=== PATIENT | female | born 1975 | race Caucasian/White ===

== ENCOUNTER → 2016-03-11 | Outpatient (CLI) | payer OTHER ==
[~2016-03-11] MED LIST: AMITRIPTYLINE H50 M1 PO; ATARAX 25MG25 MG/TAB PO; CIPRO 500MG TA500 MG PO; DIFLUCAN 100MG100 MG PO; FLEXERIL 1010 MG/TAB PO; FORTAMET1000 MG PO; GLUCOPHAGE; GLUCOPHAGE500 MG/TAB PO; LAMICTAL; LAMICTAL 100MG100 MG PO; LEXAPRO 10MG10 MG PO; LEXAPRO20 MG PO; LISINOPRIL10 MG PO; LISINOPRIL5 MG PO; LORTAB 2.5/5001 TAB PO; LORTAB 5/500 501 TAB PO; LORTAB 7.5/5001 TAB PO; MACROBID 1100 MG/CAP PO; MOBIC15 MG PO; NORCO 325 MG-51 TAB PO; NORVASC 5MG5 MG/TAB PO; ORPHENADRINE C100 MG PO; PERCOCET 325 MG1 TA2 PO; PREDNISONE20 MG PO; PRINIVIL20 MG PO; PROMETHAZINE V473 M2 PO; PROVENTIL0.09 MG/A1 IH; PYRIDIUM200 M1 PO; ULTRAM 50MG TAB50 MG PO; ZITHROMAX 250M250 MG PO; ZITHROMAX500 MG PO; ZOFRAN 4MG T4 MG/TAB PO; b/p med
== END ==
LOC: COL.RAD 12:14
DX: J45.998 Other asthma (principal); R05 Cough

== ENCOUNTER 2016-07-07 17:56 | Emergency (ER) | payer SELFPAY ==
[2008-06-05 02:09] VITALS: BP 124/78
[~2016-07-07] VITALS: Ht 177.8 cm; Wt 154.5 kg
[~2016-07-07 17:56] MED LIST changes: -FLEXERIL 1010 MG/TAB PO
[2016-07-07 17:58] VITALS: TEMP 97.2
[2016-07-07] MEDS ORDERED: NORCO 325 MG-51 TAB PO (21:15)
[2016-07-07] MEDS ORDERED: DIFLUCAN 100MG100 MG PO (21:15)
[2016-07-07] MEDS ORDERED: FLEXERIL 1010 MG/TAB PO (21:15)
[2016-07-07] MEDS ORDERED: PREDNISONE20 MG PO (21:15)
[2016-07-07 21:33] VITALS: BP 116/61; PULSE 87
== END 2016-07-07 21:33 | disposition home or self-care (01) ==
LOC: COL.ER 17:56
DX: G89.29 Other chronic pain (principal); M54.5 Low back pain; F31.9 Bipolar disorder, unspecified; J44.9 Chronic obstructive pulmonary disease, unspecified; E11.9 Type 2 diabetes mellitus without complications; I10 Essential (primary) hypertension; F17.210 Nicotine dependence, cigarettes, uncomplicated; Z87.891 Personal history of nicotine dependence; Z98.890 Other specified postprocedural states; Z98.51 Tubal ligation status
CPT/HCPCS: J1170; J1885; J3360; J7512

== ENCOUNTER → 2017-07-06 | Outpatient (CLI) | payer SELFPAY ==
[~2017-07-06] MED LIST changes: +FLEXERIL 1010 MG/TAB PO
== END ==
LOC: COL.RAD 09:11
DX: M17.0 Bilateral primary osteoarthritis of knee (principal)

== ENCOUNTER → 2017-10-28 | Outpatient (CLI) | payer SELFPAY ==
[~2017-10-28] MED LIST changes: +ASPIRIN 81M81 MG/TA2 PO; +BUSPAR DIVIDOSE15 MG PO; +NEURONTIN300 MG/CAP PO
== END ==
LOC: COL.RAD 11:38
DX: N20.0 Calculus of kidney (principal)

== ENCOUNTER 2019-01-22 18:02 | Emergency (ER) | payer BC ==
[~2019-01-22] VITALS: Ht 177.8 cm; Wt 154.5 kg
[~2019-01-22 18:02] MED LIST changes: +PRILOSEC10 MG
[2019-01-22 18:11] VITALS: BP 141/76; TEMP 97.7
[2019-01-22 20:21] LABS: COLLECTION METHOD CLEAN CATCH
[2019-01-22 20:31] LABS: MUCOUS Present /lpf; PH 5 (5-8); SQUAMOUS EPITHELIAL 0-2 /hpf; URINE APPEARANCE Hazy; URINE BACTERIA Rare /hpf; URINE BILIRUBIN Negative (NEGATIVE); URINE BLOOD Negative (NEGATIVE); URINE COLOR Yellow; URINE GLUCOSE Negative (NEGATIVE); URINE KETONE Trace (NEGATIVE); URINE LEUKOCYTE ESTERASE Negative (NEGATIVE); URINE NITRATE Negative (NEGATIVE); URINE PROTEIN(semi-quant) Negative (NEGATIVE); URINE RBC 0-2 /hpf
[2019-01-22] MEDS ORDERED: PERCOCET 325 MG1 TA2 PO (20:42)
[2019-01-22 21:52] VITALS: PULSE 81
== END 2019-01-22 21:52 | disposition home or self-care (01) ==
LOC: COL.ER 18:02
PROVIDERS: Physician Assistant
DX: M54.5 Low back pain (principal); Z98.890 Other specified postprocedural states; Z79.82 Long term (current) use of aspirin; Z79.84 Long term (current) use of oral hypoglycemic drugs; X50.0XXA Overexertion from strenuous movement or load, initial encounter
CPT/HCPCS: J2270; J2360

== ENCOUNTER 2019-08-22 19:35 | Inpatient (IN) | payer BC ==
[2019-08-22] VITALS (19 sets, daily range): BP systolic 136; BP diastolic 85; PULSE 83; TEMP 97.6; O2SAT 95–98
[~2019-08-22] VITALS: Ht 175.3 cm; Wt 158.3 kg
[~2019-08-22 19:35] MED LIST changes: +PRAVACHOL 40MG40 MG PO; -PRILOSEC10 MG; +PRILOSEC10 MG PO
[2019-08-22 20:16] LABS: BASO % 0.3 % (0.0-2.0); EOS # 0.3 (0.0-0.7); EOS % 2.7 % (0-4.0); GRAN # 5.9 (1.4-6.5); GRAN % 61.8 % (42.2-75.2); HEMATOCRIT 39.8 % (37.0-47.0); LYMPH # 2.6 (1.2-3.4); MEAN CELL VOLUME 86 fl (80.0-100.0); MEAN CORPUSCULAR HEMOGLOBIN 28 pg (27.0-31.0); MEAN CORPUSCULAR HGB CONC 33 g/dl (33.0-37.0); MEAN PLATELET VOLUME 10.8 fl (7.4-10.4); MONO # 0.8 (0.1-0.6); MONO % 7.8 % (1.7-9.3); PLATELET COUNT 220 K/mm3 (130-400); RED BLOOD COUNT 4.63 M/mm3 (4.10-5.30); REDCELL DISTRIBUTION WIDTH-CV 13.1 % (11.5-14.5)
[2019-08-22 20:36] LABS: PROTHROMBIN TIME 10.6 SECONDS (9.7-12.8)
[2019-08-22 20:39] LABS: PARTIAL THROMBOPLASTIN TIME 26.7 SECONDS (26.0-37.0)
[2019-08-22 20:56] LABS: ALANINE AMINOTRANSFERASE 15 U/L (4-34); ALBUMIN 4.1 gm/dL (3.5-5.0); ALKALINE PHOSPHATASE 78 U/L (50-136); ANION GAP 10 mmol/L (7-16); AST,SGOT 19 U/L (15-37); BILIRUBIN,TOTAL 0.4 mg/dL (0.0-1.0); BLOOD UREA NITROGEN 14 mg/dL (7-17); CALCIUM 9.4 mg/dL (8.4-10.2); CARBON DIOXIDE 25 mmol/L (22-30); CHLORIDE 103 mmol/L (98-107); CREATININE, serum 0.59 (0.52-1.25); GLUCOSE 143 mg/dL (74-106); POTASSIUM 3.7 mmol/L (3.4-5.0); SODIUM 138 mmol/L (137-145); TOTAL PROTEIN 7.4 gm/dL (6.4-8.2)
[2019-08-22 21:10] LABS: TROPONIN-I < 0.012 ng/mL (0.000-0.035)
--- NOTE | 2019-08-22 23:00 | NUR ---
REPORT RECEIVED FROM CURTIS HALLMAN.
--- NOTE | 2019-08-22 23:10 | NUR ---
RECEIVED PT FROM ED WITH NITROGLYCERINE INFUSING AT 5 MCG/MIN OR 1.5 ML/HR.
--- NOTE | 2019-08-22 23:10 | NUR ---
RECEIVED PT WITH HEPARIN INFUSING AT 1000 UNITS/HR OR 10 ML/HR.
[2019-08-22] MEDS ORDERED: VENTOLIN0.09 MG IH (23:51)
[2019-08-23] VITALS (543 sets, daily range): BP systolic 112–132; BP diastolic 57–88; PULSE 69–89; TEMP 97.7–98.6; O2SAT 90–99
--- NOTE | 2019-08-23 01:10 | NUR ---
2310 - PT ARRIVED IN UNIT, ABLE TO WALK INDEPENDENTLY FROM STRETCHER TO BED, VS WNL, COMPLAINS OF CHEST PAIN THAT IS DESCRIBED ACHING AND RADIATES TO LEFT NECK AND SHOULDER, ON ROOM AIR. PT ALSO HAS HEPARIN DRIP GOING AT 1O ML/HR AND A NITRO DRIP GOING AT 5 MCG/MIN. 0000 - DR. WIN AT BEDSIDE TO ASSESS PT AND DISCUSS POC.
[2019-08-23 04:14] LABS: BASO % 0.2 % (0.0-2.0); EOS # 0.3 (0.0-0.7); EOS % 2.8 % (0-4.0); GRAN # 5.5 (1.4-6.5); GRAN % 56.8 % (42.2-75.2); HEMOGLOBIN 11.6 g/dl (12.5-16.0); LYMPH # 3.2 (1.2-3.4); LYMPH % 33.1 % (20.0-51.0); MEAN CELL VOLUME 86 fl (80.0-100.0); MEAN CORPUSCULAR HEMOGLOBIN 28 pg (27.0-31.0); MEAN CORPUSCULAR HGB CONC 32 g/dl (33.0-37.0); MEAN PLATELET VOLUME 10.5 fl (7.4-10.4); MONO # 0.7 (0.1-0.6); MONO % 6.7 % (1.7-9.3); PLATELET COUNT 185 K/mm3 (130-400); RED BLOOD COUNT 4.22 M/mm3 (4.10-5.30); REDCELL DISTRIBUTION WIDTH-CV 13.2 % (11.5-14.5)
[2019-08-23 04:21] LABS: HEMATOCRIT 36.3 % (37.0-47.0)
[2019-08-23 04:23] LABS: CALCIUM 8.7 mg/dL (8.4-10.2); CREATININE, serum 0.59 (0.52-1.25); POTASSIUM 3.9 mmol/L (3.4-5.0)
--- NOTE | 2019-08-23 07:15 | NUR ---
REPORT GIVEN TO CURTIS GEIGER.
--- NOTE | 2019-08-23 15:44 | NUR ---
Maitre D met with the patient to complete initial intake. The patient lives in [place] with her and their two kids. The patient denies DME use and is independent with ADLs. The patient's PCP is CARLOS Solis and patient receives medications from [facility]. The patient does not have advanced directives in the EMR. The patient was not interested in DPOA-HC form at this time. The patient plans to return home at discharge. There are no additional needs at this time.
--- NOTE | 2019-08-23 15:44 | NUR ---
SEE MERGE DOCUMENTATION FOR MEDICATION ADMINISTRATION AND INTRA/POST PROCEDURE SEDATION ASSESSMENTS.
--- NOTE | 2019-08-23 17:20 | NUR ---
Spoke with Dr. Hook who advises to DC PTs heparin and Nitro drips due to a clean catheterization.
--- NOTE | 2019-08-23 19:35 | NUR ---
right radial TR band deflated by 4 ml. 10 cc of air left in bed.
--- NOTE | 2019-08-23 19:40 | NUR ---
PT ALERT AND ORIENTED X4, ON ROOM AIR, DENIES ANY PAIN AT THIS TIME. PT REMAINS FLAT TILL 2030. TR BAND LOOKS GOOD WITH NO BLEEDING NOTED. RIGHT FEMORAL SIGHT DRESIING INTACT, SITE SOFT WITH NO HEMATOMA NOTED. PT WILL BE TRANSFERED TO MEDICAL FLOOR ONCE BED IS AVAILABLE. PT AWARE OF TRASNFER.
--- NOTE | 2019-08-23 19:56 | NUR ---
TR BAND LOOSENED [place] 5 ML. 5 CC OF AIR LEFT. NO BLEEDING NOTED.
--- NOTE | 2019-08-23 20:46 | NUR ---
TR BAND COMPLETELY OFF. NO BLEEDING NOTED. SITE IS CLEANED, BAND AID APPLIED.
--- NOTE | 2019-08-23 20:55 | NUR ---
REPORT GIVEN TO CURTIS GUTIERREZ.
--- NOTE | 2019-08-23 21:19 | NUR ---
PT TRANSFERED TO [facility]. BRENDA ZAMORA.
[2019-08-23] MEDS ORDERED: VITAMIN D31000 I1 PO (21:41)
--- NOTE | 2019-08-23 22:05 | NUR ---
PATIENT CAME UP FROM THE ICU. PATIENT IS ALERT AND ORIENTATED. PATIENT SITS IN THE CHAIR. PATIENT CONFIRMED ALLERGIES AND HOME MEDICATIONS WITH THIS NURSE. PATIENT IS ALERT AND ORIENTATED. IV WAS RETAPED. PATIENT WAS GIVEN A SANDWICH BOX TO GET HER THROUGH THE NIGHT. FRESH WATER WAS GIVEN TO THE PATIENT. PATIENT RIGHT WRIST HAS NO HEMATOMAS NOTED TO IT AND WAS SOFT BUT DID HAVE SOME BRUISING NOTED. RIGHT FEMORAL SITE IT SOFT TO THE TOUCH WITH NO HEMATOMA FORMATIONS.
[2019-08-24] VITALS (9 sets, daily range): BP systolic 112–136; BP diastolic 55–83; PULSE 72–89; TEMP 97.3–98.2
--- NOTE | 2019-08-24 05:20 | NUR ---
PATIENT ATE A SANDWICH BOX AND DRANK SOME WATER BEFORE THE CLOCK STUCK MIDNIGHT. PATIENT HAS BEEN ASLEEP UPON ENTERING AND CHECKING IN ON HER. PATIENT DID STATE THAT SHE DID NOT GET THAT MUCH SLEEP THE PREVIOUS NIGHT. PATIENT HAS DENIED ANY NEEDS OR COMPLAINTS THROUGH OUT THE NIGHT. PATIENT IS PLANNING FOR A SOMMER THIS MORNING. HEART CATH SITES HAVE REMAINED STABLE AND NO HEMATOMA FORMATIONS. PATIENT HAS HAD NO ISSUES ON TELEY ALL EVENING. WILL CONTINUE TO MONITOR. WILL REPORT OFF TO DAY SHIFT.
--- NOTE | 2019-08-24 07:29 | NUR ---
PT AOX4. RESTING IN BED AWAITING PROCEDURE. DENIES CONCERNS
--- NOTE | 2019-08-24 08:31 | NUR ---
SOMMER CONFIRMED WITH DR PALACIOS. RADIOLOGY NURSE NOTIFIED
--- NOTE | 2019-08-24 11:51 | NUR ---
First visit from the tour narrator. No needs right now.
--- NOTE | 2019-08-24 15:35 | NUR ---
PT ARRIVED TO UNIT FROM PROCEDURE @ 3135. AOX4. REPORTS MILD THROAT IRRITATION. STEADY AMBULATION. OPTED TO SIT IN CHAIR. VVS.
== END 2019-08-24 18:20 | disposition home or self-care (01) | DRG 287 ==
LOC: COL.ER 19:35 → IMCU 22:11 → MEDICAL 08-23 19:06
PROVIDERS: Emergency Medicine
PROC: 4A023N7 Measurement of Cardiac Sampling and Pressure, Left Heart, Percutaneous Approach (ICD-10-PCS; principal; 2019-08-23)
PROC: B2111ZZ Fluoroscopy of Multiple Coronary Arteries using Low Osmolar Contrast (ICD-10-PCS; 2019-08-23)
PROC: B2151ZZ Fluoroscopy of Left Heart using Low Osmolar Contrast (ICD-10-PCS; 2019-08-23)
DX: I31.3 Pericardial effusion (noninflammatory) (principal); Z68.43 Body mass index [BMI] 50.0-59.9, adult; J44.9 Chronic obstructive pulmonary disease, unspecified; E11.9 Type 2 diabetes mellitus without complications; I10 Essential (primary) hypertension; G47.00 Insomnia, unspecified; K21.9 Gastro-esophageal reflux disease without esophagitis; E66.01 Morbid (severe) obesity due to excess calories; G47.33 Obstructive sleep apnea (adult) (pediatric); I08.1 Rheumatic disorders of both mitral and tricuspid valves; Z88.5 Allergy status to narcotic agent; F31.9 Bipolar disorder, unspecified; F41.9 Anxiety disorder, unspecified; E78.5 Hyperlipidemia, unspecified; R51 Headache; Z79.82 Long term (current) use of aspirin; Z79.84 Long term (current) use of oral hypoglycemic drugs; Z87.891 Personal history of nicotine dependence; Z88.0 Allergy status to penicillin; Z88.2 Allergy status to sulfonamides
CPT/HCPCS: OP; 99223-AI; 99232-AI; 99239; C1760; C1769; C1894; J1644; J2250; J2704; J3010; J7030

== ENCOUNTER → 2019-11-15 | Outpatient (CLI) | payer BC ==
[~2019-11-15] MED LIST changes: +VENTOLIN0.09 MG IH; +VITAMIN D31000 I1 PO
== END ==
LOC: COL.RAD 15:43
DX: M17.12 Unilateral primary osteoarthritis, left knee (principal)

== ENCOUNTER 2019-12-14 10:00 | Outpatient (RCR) | payer BC | END 2020-02-11 | disposition home or self-care (01) | LOC: WSC | DX: M25.562 Pain in left knee (principal); G89.29 Other chronic pain ==

== ENCOUNTER 2020-04-21 16:30 | Outpatient (RCR) | payer BC ==
[2020-05-03] MEDS ORDERED: ZOFRAN ODT4 MG PO (18:39)
== END 2020-06-20 09:29 | disposition home or self-care (01) ==
LOC: WSPT 16:30
DX: M79.10 Myalgia, unspecified site (principal)

== ENCOUNTER 2020-04-25 11:00 | Outpatient (RCR) | payer BC ==
[2020-05-03] MEDS ORDERED: ZOFRAN ODT4 MG PO (18:39)
== END 2020-07-15 | disposition home or self-care (01) ==
LOC: WSOT
DX: G56.03 Carpal tunnel syndrome, bilateral upper limbs (principal)

== ENCOUNTER → 2020-07-31 | Outpatient (CLI) | payer BC ==
[~2020-07-31] MED LIST changes: +ZOFRAN ODT4 MG PO
[2020-08-01 02:47] LABS: LYME DISEASE ANTIBODIES Negative (Negative)
[2020-08-01 13:34] LABS: ANA SCREEN with REFLEX Negative (Negative)
[2020-08-03 07:12] LABS: ANTISCLERODERMA-70 AB XXX
[2020-08-03 13:52] LABS: ANGIOTENSIN CONVERTING ENZYME 6 U/L (16 - 85)
== END ==
LOC: COL.LAB 14:28
PROVIDERS: Nurse Practitioner Family
DX: L98.8 Other specified disorders of the skin and subcutaneous tissue (principal)

== ENCOUNTER 2021-01-29 12:45 | Outpatient (RCR) | payer BC ==
[2021-03-09] MEDS ORDERED: ALBUTEROL0.83 MG/ML IH (05:44)
[2021-03-09] MEDS ORDERED: CELEBREX 200MG200 MG PO (05:46)
[2021-03-09] MEDS ORDERED: GLUCOPHAGE1000 MG PO (05:47)
[2021-03-10] MEDS ORDERED: PREDNISONE 5MG5 MG PO ×2 (11:41→11:58)
== END 2021-02-06 | disposition home or self-care (01) ==
LOC: WSOT
DX: R20.2 Paresthesia of skin (principal)

== ENCOUNTER 2021-01-29 13:30 | Outpatient (RCR) | payer BC ==
[2021-03-09] MEDS ORDERED: ALBUTEROL0.83 MG/ML IH (05:44)
[2021-03-09] MEDS ORDERED: CELEBREX 200MG200 MG PO (05:46)
[2021-03-09] MEDS ORDERED: GLUCOPHAGE1000 MG PO (05:47)
[2021-03-10] MEDS ORDERED: PREDNISONE 5MG5 MG PO ×2 (11:41→11:58)
== END 2021-02-06 | disposition home or self-care (01) ==
LOC: WSPT
DX: M25.562 Pain in left knee (principal); G89.29 Other chronic pain

== ENCOUNTER 2021-02-22 12:45 | Emergency (ER) | payer BC ==
[~2021-02-22] VITALS: Ht 177.8 cm; Wt 163.6 kg
[2021-02-22] MEDS ORDERED: ZOFRAN ODT4 MG PO (16:17)
[2021-02-22 17:02] VITALS: BP 113/75; PULSE 96; TEMP 98.2
== END 2021-02-22 17:02 | disposition home or self-care (01) ==
LOC: COL.ER 12:45
DX: U07.1 COVID-19 (principal); J44.9 Chronic obstructive pulmonary disease, unspecified; E66.01 Morbid (severe) obesity due to excess calories; E11.9 Type 2 diabetes mellitus without complications; I10 Essential (primary) hypertension; E78.5 Hyperlipidemia, unspecified; K21.9 Gastro-esophageal reflux disease without esophagitis; F31.9 Bipolar disorder, unspecified; Z79.899 Other long term (current) drug therapy; Z79.84 Long term (current) use of oral hypoglycemic drugs; Z68.43 Body mass index [BMI] 50.0-59.9, adult
CPT/HCPCS: J2405; J7030

== ENCOUNTER 2021-02-24 23:02 | Inpatient (IN) | payer BC ==
[~2021-02-24] VITALS: Ht 177.8 cm; Wt 163.6 kg
[2021-02-24 23:21] LABS: BASO # 0.1 K/mm3 (0.0-0.2); BASO % 0.4 % (0.0-2.0); EOS # 0.1 K/mm3 (0.0-0.7); EOS % 0.6 % (0.0-4.0); GRAN # 12.3 K/mm3 (1.4-6.5); GRAN % 80.9 % (42.2-75.2); HEMATOCRIT 33.7 % (37.0-47.0); HEMOGLOBIN 10.7 g/dl (12.5-16.0); LYMPH # 1.4 K/mm3 (1.2-3.4); LYMPH % 8.9 % (20.0-51.0); MEAN CELL VOLUME 83 fl (80.0-100.0); MEAN CORPUSCULAR HEMOGLOBIN 26 pg (27-31); MEAN CORPUSCULAR HGB CONC 32 g/dl (33.0-37.0); MEAN PLATELET VOLUME 11.7 fl (7.4-10.4); MONO # 1.2 K/mm3 (0.1-0.6); MONO % 7.9 % (1.7-9.3); PLATELET COUNT 171 K/mm3 (130-400); RED BLOOD COUNT 4.06 M/mm3 (4.10-5.30); REDCELL DISTRIBUTION WIDTH-CV 14.7 % (11.5-14.5)
[2021-02-24 23:35] LABS: ALBUMIN 2.9 gm/dL (3.5-5.0); BILIRUBIN,TOTAL 0.4 mg/dL (0.2-1.2); C-REACTIVE PROTEIN 30.89 mg/dL (0.00-0.50); CALCIUM 9.3 mg/dL (8.4-10.2); CREATININE, serum 0.68 mg/dL (0.57-1.11); POTASSIUM 3.5 mmol/L (3.5-4.5); TOTAL PROTEIN 6.7 gm/dL (6.2-8.1)
[2021-02-25 02:30] LABS: COLLECTION METHOD CLEAN CATCH
[2021-02-25 02:35] LABS: MUCOUS Present (NOT PRESENT); PH 6 (5-8); SQUAMOUS EPITHELIAL 0-2 /hpf (0-10); URINE APPEARANCE Clear (CLEAR/HAZY); URINE BACTERIA None Seen /hpf (NONE SEEN); URINE BILIRUBIN Negative (NEGATIVE); URINE BLOOD Negative (NEGATIVE); URINE COLOR Yellow (YELLOW); URINE GLUCOSE 1+ (NEGATIVE); URINE KETONE Trace (NEGATIVE); URINE LEUKOCYTE ESTERASE Negative (NEGATIVE); URINE NITRATE Negative (NEGATIVE); URINE PROTEIN(semi-quant) Negative (NEGATIVE); URINE RBC 0-2 /hpf (0-2); URINE UROBILINOGEN Negative (NEGATIVE)
[2021-02-25 06:38] LABS: BASO % 0.3 % (0.0-2.0); EOS % 0.2 % (0.0-4.0); GRAN # 10.8 K/mm3 (1.4-6.5); GRAN % 87.4 % (42.2-75.2); HEMOGLOBIN 10.5 g/dl (12.5-16.0); LYMPH # 0.8 K/mm3 (1.2-3.4); LYMPH % 6.1 % (20.0-51.0); MEAN CELL VOLUME 84 fl (80.0-100.0); MEAN CORPUSCULAR HEMOGLOBIN 27 pg (27-31); MEAN CORPUSCULAR HGB CONC 32 g/dl (33.0-37.0); MEAN PLATELET VOLUME 11.8 fl (7.4-10.4); MONO # 0.6 K/mm3 (0.1-0.6); PLATELET COUNT 146 K/mm3 (130-400); RED BLOOD COUNT 3.91 M/mm3 (4.10-5.30); REDCELL DISTRIBUTION WIDTH-CV 14.9 % (11.5-14.5)
[2021-02-25 07:02] LABS: ALBUMIN 2.7 gm/dL (3.5-5.0); BILIRUBIN,TOTAL 0.4 mg/dL (0.2-1.2); CALCIUM 9.1 mg/dL (8.4-10.2); CREATININE, serum 0.67 mg/dL (0.57-1.11); POTASSIUM 3.8 mmol/L (3.5-4.5); TOTAL PROTEIN 6.5 gm/dL (6.2-8.1)
[2021-02-25 07:55] LABS: MAGNESIUM 1.7 mg/dL (1.6-2.6)
[2021-02-25] MEDS ORDERED: CELEBREX 200MG200 MG PO (14:22)
[2021-02-25] MEDS ORDERED: TOPROL XL100 MG PO (14:23)
[2021-02-25 16:12] VITALS: BP 131/70; PULSE 86; TEMP 98.1
--- NOTE | 2021-02-25 18:36 | NUR ---
PT C/O PAIN SO TYLENOL GIVEN, PT DID REPORT SUICIDAL THOUGHTS IN THE PAST AND OPENLY ADMITS TO BIPOLAR DISORDER. PT PLEASANT, AOX4, INDEPENDENT IN ROOM, IV FLUIDS INFUSING PER ORDER, MEDS GIVEN PER ORDERS, ADMISSION COMPLETED EARLIER IN SHIFT, NO OTHER NEEDS
--- NOTE | 2021-02-25 18:48 | NUR ---
PT SITTING UP IN CHAIR. COMPLAINING OF PAIN IN CHEST WHEN BREATHING. STATED THAT SHE TRIED TO EAT DINNER AND IT WAS "HURTING HER CHEST TOO MUCH." GAVE TYLENOL PER PRN ORDER FOR PAIN. RATES PAIN A 5 ATT. ALSO STATES THAT SHE ALSO FEELS LIKE HER "ANXIETY IS HIGH". GAVE TYLENOL AND PT BECAME NASEOUS. THEN GAVE ZOFRAN PER PRN ORDER. PT STATES THAT SHE WAS FEELING BETTER. NO MORE NEEDS ATT.
[2021-02-25 20:54] VITALS: BP 116/62; PULSE 97; TEMP 97.3
--- NOTE | 2021-02-25 21:20 | NUR ---
Patient is sitted in bed, alert and oriented x 4, VSS. 2.5L O2 NC. NS at 100ml/hr. Assessment complreted, medications provided. No further needs at this time. Call light within reach.
[2021-02-26 00:46] VITALS: BP 155/92; PULSE 100; TEMP 97.9
[2021-02-26 04:58] VITALS: BP 115/62; PULSE 98; TEMP 97.5
--- NOTE | 2021-02-26 06:20 | NUR ---
Patient had difficulties to sleep. Melatonin provided. She continues with 2.5L NC. Report will be given to day RN.
[2021-02-26 08:50] VITALS: BP 132/80; PULSE 100; TEMP 98.5
[2021-02-26 09:03] LABS: BASO % 0.2 % (0.0-2.0); GRAN # 6.3 K/mm3 (1.4-6.5); GRAN % 78.4 % (42.2-75.2); LYMPH # 1.1 K/mm3 (1.2-3.4); LYMPH % 13.5 % (20.0-51.0); MEAN CELL VOLUME 88 fl (80.0-100.0); MEAN CORPUSCULAR HGB CONC 30 g/dl (33.0-37.0); MEAN PLATELET VOLUME 11.7 fl (7.4-10.4); MONO # 0.6 K/mm3 (0.1-0.6); PLATELET COUNT 162 K/mm3 (130-400); RED BLOOD COUNT 3.59 M/mm3 (4.10-5.30); REDCELL DISTRIBUTION WIDTH-CV 14.7 % (11.5-14.5)
[2021-02-26 09:04] LABS: HEMATOCRIT 31.7 % (37.0-47.0); HEMOGLOBIN 9.6 g/dl (12.5-16.0); MEAN CORPUSCULAR HEMOGLOBIN 27 pg (27-31)
[2021-02-26 09:08] LABS: CALCIUM 8.6 mg/dL (8.4-10.2); CREATININE, serum 0.68 mg/dL (0.57-1.11); POTASSIUM 3.8 mmol/L (3.5-4.5)
[2021-02-26 11:13] VITALS: BP 113/58; PULSE 96; TEMP 98
--- NOTE | 2021-02-26 11:33 | NUR ---
THE PATIENTS IV IS UNABLE TO FLUSH, IT HAS INFILTRATED. DUE TO THE PATIENT'S SIZE, CONTACTED CURTIS TEE WHO WILL PLACE NEW IV.
--- NOTE | 2021-02-26 15:34 | NUR ---
Communications Coordinator contacted patient by phone to discuss discharge planning as she is in isolation for COVID. Patient lives in [place] and works at [employer]. Patient sees Susie Fisher APRN for primary care and obtains medications from [facility] with no difficulties. Patient does not use any DME and reports independence with ADLS. Patient does not have Advance Directives and her legal next of kin is her , Remy. Patient also has two teenage sons, Jose Alberto and Saturnino. Patient plans to return home upon discharge. Discharge Plan: Home
[2021-02-26 17:13] VITALS: BP 130/72; PULSE 79; TEMP 98.4
--- NOTE | 2021-02-26 19:35 | NUR ---
PT HAD UNEVENTFUL DAY. PLAN FOR DISCHARGE PER DR. RINCON IN THE MORNING.
[2021-02-26 21:05] VITALS: BP 142/75; PULSE 87; TEMP 98.6
[2021-02-27 01:56] VITALS: BP 131/84; PULSE 76; TEMP 98.4
[2021-02-27 05:58] VITALS: BP 121/83; PULSE 79; TEMP 98
[2021-02-27 06:02] LABS: HEMOGLOBIN 10.6 g/dl (12.5-16.0); MEAN CELL VOLUME 87 fl (80.0-100.0); MEAN CORPUSCULAR HEMOGLOBIN 26 pg (27-31); MEAN CORPUSCULAR HGB CONC 31 g/dl (33.0-37.0); MEAN PLATELET VOLUME 11.3 fl (7.4-10.4); PLATELET COUNT 245 K/mm3 (130-400); RED BLOOD COUNT 4.01 M/mm3 (4.10-5.30); REDCELL DISTRIBUTION WIDTH-CV 14.8 % (11.5-14.5)
[2021-02-27 06:21] LABS: ALBUMIN 2.9 gm/dL (3.5-5.0); CALCIUM 9.2 mg/dL (8.4-10.2); CREATININE, serum 0.75 mg/dL (0.57-1.11); POTASSIUM 3.6 mmol/L (3.5-4.5); TOTAL PROTEIN 6.8 gm/dL (6.2-8.1)
[2021-02-27 06:31] LABS: HEMATOCRIT 34.7 % (37.0-47.0)
[2021-02-27 06:44] LABS: BILIRUBIN,TOTAL 0.2 mg/dL (0.2-1.2)
--- NOTE | 2021-02-27 06:55 | NUR ---
ASSESSMENT COMPLETE FOR THIS SHIFT. PT RESTING IN HER RECLINER WATCHING TV WHEN I WALKED IN. PT DENIES PAIN, PALPITATIONS, SOB, N,V,D OR DIZZINESS. AROUND 0350HRS, PT'S IV WAS INFILTRATED(EXTRAVASATION). SEVERAL ATTEMPS TO RESTART IV, BY MYSELF, UNIT CHARGE AND OYSTER PICKER, WAS UNSUCCESS. HOSPITALIST CHACHA SEAY INFORMED. PT SHOULD D/C TODAY AND PO MEDS MOST LIKELY PRESCRIBED. PT EXPRESSED NO OTHER NEEDS AT THIS TIME. CALL LIGHT WITHIN REACH.
--- NOTE | 2021-02-27 08:00 | NUR ---
Patient sitting up in the recliner, A&Ox4. VSS, rm air, no reported SOB. IV CDI. Denies pain and discomfort. Droplet/contact precautions in place. No further needs expressed. Call light within reach
[2021-02-27 08:10] LABS: BAND 15 % (0-10); LYMPHOCYTE 20 % (20.0-51.0); METAMYELOCYTE 2 % (0-0); NEUTROPHILS 59 % (42.0-75.2); PLATELET ESTIMATE NORMAL (NORMAL)
[2021-02-27 08:57] VITALS: BP 137/63; PULSE 81; TEMP 97.9
[2021-02-27] MEDS ORDERED: MONODOX100 PO (10:41)
[2021-02-27] MEDS ORDERED: OMNICEF 300MG300 MG PO (10:41)
[2021-02-27] MEDS ORDERED: DECADRON6 MG PO (10:42)
--- NOTE | 2021-02-27 11:11 | NUR ---
PATIENT DOES NOT REQUIRE OXYGEN WITH AMBULATION
[2021-02-27 11:13] VITALS: BP 142/67; PULSE 81; TEMP 98
--- NOTE | 2021-02-27 14:40 | NUR ---
Discharge paperwork reviewed with the patient. Patient verbalized an understanding to follow doctors orders. IV removed, tip intact. Patient taken by wheelchair to the ED entrance. Discharge paperwork and personal belongings with the patient. No further needs expressed.
== END 2021-02-27 13:22 | disposition home or self-care (01) | DRG 177 ==
LOC: COL.ER 23:02 → MEDICAL 02-25 02:24
PROVIDERS: Emergency Medicine; Physician Assistant; Student in an Organized Health Care Education/Training Program; ADMIT Internal Medicine
PROC: XW033E5 Introduction of Remdesivir Anti-infective into Peripheral Vein, Percutaneous Approach, New Technology Group 5 (ICD-10-PCS; principal; 2021-02-25)
DX: U07.1 COVID-19 (principal); J12.82 Pneumonia due to coronavirus disease 2019; J96.01 Acute respiratory failure with hypoxia; Z68.43 Body mass index [BMI] 50.0-59.9, adult; E66.01 Morbid (severe) obesity due to excess calories; J44.9 Chronic obstructive pulmonary disease, unspecified; F41.9 Anxiety disorder, unspecified; E11.9 Type 2 diabetes mellitus without complications; F32.A Depression, unspecified; I10 Essential (primary) hypertension; E87.6 Hypokalemia; E78.5 Hyperlipidemia, unspecified; K21.9 Gastro-esophageal reflux disease without esophagitis; K76.0 Fatty (change of) liver, not elsewhere classified; Z88.0 Allergy status to penicillin; Z88.2 Allergy status to sulfonamides; Z79.84 Long term (current) use of oral hypoglycemic drugs; Z79.82 Long term (current) use of aspirin; Z73.0 Burn-out
CPT/HCPCS: 99223-AI; 99232-AI; 99239; J0248; J0692; J1100; J1650; J1815; J2060; J2405; J7030; J7050; J7120; J8540; Q9967

== ENCOUNTER → 2021-03-12 | Outpatient (CLI) | payer BC ==
[~2021-03-12] MED LIST changes: +ALBUTEROL0.83 MG/ML IH; +CELEBREX 200MG200 MG PO; +DECADRON6 MG PO; +GLUCOPHAGE1000 MG PO; +MONODOX100 PO; +OMNICEF 300MG300 MG PO; +PREDNISONE 5MG5 MG PO; +TOPROL XL100 MG PO
== END ==
LOC: COL.RAD 12:07
DX: R06.02 Shortness of breath (principal)

== ENCOUNTER → 2021-03-20 | Outpatient (CLI) | payer BC ==
[2021-03-19 13:12] LABS: COLLECTION METHOD CLEAN CATCH
[2021-03-19 13:19] LABS: BASO % 0.3 % (0.0-2.0); EOS # 0.1 K/mm3 (0.0-0.7); EOS % 1.3 % (0.0-4.0); GRAN % 77.5 % (42.2-75.2); HEMATOCRIT 42.8 % (37.0-47.0); HEMOGLOBIN 13.7 g/dl (12.5-16.0); LYMPH # 1.4 K/mm3 (1.2-3.4); MEAN CELL VOLUME 84 fl (80.0-100.0); MEAN CORPUSCULAR HEMOGLOBIN 27 pg (27-31); MEAN CORPUSCULAR HGB CONC 32 g/dl (33.0-37.0); MEAN PLATELET VOLUME 10.8 fl (7.4-10.4); MONO # 0.6 K/mm3 (0.1-0.6); MONO % 5.9 % (1.7-9.3); PLATELET COUNT 248 K/mm3 (130-400); RED BLOOD COUNT 5.08 M/mm3 (4.10-5.30); REDCELL DISTRIBUTION WIDTH-CV 15.1 % (11.5-14.5)
[2021-03-19 13:28] LABS: PH 5 (5-8); URINE APPEARANCE Clear (CLEAR/HAZY); URINE BILIRUBIN Negative (NEGATIVE); URINE BLOOD Negative (NEGATIVE); URINE COLOR Yellow (YELLOW); URINE GLUCOSE Negative (NEGATIVE); URINE KETONE Negative (NEGATIVE); URINE LEUKOCYTE ESTERASE Negative (NEGATIVE); URINE NITRATE Negative (NEGATIVE); URINE PROTEIN(semi-quant) 1+ (NEGATIVE); URINE UROBILINOGEN Negative (NEGATIVE)
[2021-03-19 13:32] LABS: MUCOUS Present (NOT PRESENT); URINE BACTERIA Rare /hpf (NONE SEEN); URINE RBC 0-2 /hpf (0-2)
[2021-03-19 13:38] LABS: ALBUMIN 3.9 gm/dL (3.5-5.0); BILIRUBIN,TOTAL 0.6 mg/dL (0.2-1.2); CALCIUM 9.7 mg/dL (8.4-10.2); CREATININE, serum 0.82 mg/dL (0.57-1.11); POTASSIUM 4.3 mmol/L (3.5-4.5); TOTAL PROTEIN 6.8 gm/dL (6.2-8.1)
== END ==
LOC: COL.VAS 03-19 13:45
PROVIDERS: Registered Nurse
DX: R06.02 Shortness of breath (principal); R60.0 Localized edema; K80.20 Calculus of gallbladder without cholecystitis without obstruction; R53.83 Other fatigue; Z86.16 Personal history of COVID-19

== ENCOUNTER 2021-05-22 06:35 | Day surgery (SDC) | payer BC ==
[2008-06-05 02:09] VITALS: BP 124/78
[~2021-05-22] VITALS: Ht 177.8 cm; Wt 157.2 kg
[2021-05-22] MEDS ORDERED: TRELEGY AER ELL (07:08)
[2021-05-22 07:45] VITALS: BP 125/82; PULSE 71; TEMP 98.1
[2021-05-22 08:35] VITALS: BP 109/56; PULSE 69; TEMP 97
--- NOTE | 2021-05-22 08:35 | NUR ---
Pt arrived from procedure drowsy. Pt was assisted with stand and pivot by x2 RN's. Vitals obtained. Verbal report obtained. is present in room. Call matthews is within reach on side table. Pt assisted with repositioning. Warm blankets provided.
[2021-05-22 08:50] VITALS: BP 108/61; PULSE 66
--- NOTE | 2021-05-22 08:50 | NUR ---
Pt is still drowsy, but has begun eating her applesauce. Vitals obtained. Will continue to monitor per intervals.
--- NOTE | 2021-05-22 08:55 | NUR ---
is in to speak with the pt and .
[2021-05-22 09:05] VITALS: BP 111/62; PULSE 67
--- NOTE | 2021-05-22 09:05 | NUR ---
Vitals obtained. Pt has finished her applesauce and continues to sip her water. Pt denies nausea. No vomiting. Pt expressed desire to be discharged. DC instructions and educational material reviewed with pt, who verbalized understanding and signed the related paperwork. IV discontinued. Catheter tip intact. Pressure bandage applied. No redness or swelling noted. Call matthews remains within reach. Pt denied needing assistance changing into personal clothes. Pt states she will use call matthews when done changing.
--- NOTE | 2021-05-22 09:27 | NUR ---
Pt dismissed from endo via wheelchair by Roseline ACEVEDO to pt entrence w/ , who has DC packet and is present to drive. Pt transferred into his care. Pt has personal belongings.
== END 2021-05-22 09:25 | disposition home or self-care (01) ==
LOC: SDCO 06:35
DX: K29.50 Unspecified chronic gastritis without bleeding (principal); K31.7 Polyp of stomach and duodenum; E66.01 Morbid (severe) obesity due to excess calories; K76.0 Fatty (change of) liver, not elsewhere classified; Z87.891 Personal history of nicotine dependence
CPT/HCPCS: J2704; J7120

== ENCOUNTER 2021-08-09 11:04 | Emergency (ER) | payer BC ==
[~2021-08-09] VITALS: Ht 177.8 cm; Wt 152.3 kg
[~2021-08-09 11:04] MED LIST changes: +TRELEGY AER ELL
[2021-08-09 11:13] VITALS: TEMP 97.2
[2021-08-09 12:17] LABS: BASO % 0.4 % (0.0-2.0); EOS # 0.2 K/mm3 (0.0-0.7); EOS % 2.2 % (0.0-4.0); GRAN # 6.5 K/mm3 (1.4-6.5); GRAN % 68.9 % (42.2-75.2); HEMATOCRIT 39.1 % (37.0-47.0); HEMOGLOBIN 12.5 g/dl (12.5-16.0); LYMPH % 20.8 % (20.0-51.0); MEAN CELL VOLUME 84 fl (80.0-100.0); MEAN CORPUSCULAR HEMOGLOBIN 27 pg (27-31); MEAN CORPUSCULAR HGB CONC 32 g/dl (33.0-37.0); MEAN PLATELET VOLUME 10.9 fl (7.4-10.4); MONO # 0.7 K/mm3 (0.1-0.6); MONO % 7.3 % (1.7-9.3); PLATELET COUNT 251 K/mm3 (130-400); RED BLOOD COUNT 4.65 M/mm3 (4.10-5.30); REDCELL DISTRIBUTION WIDTH-CV 14.4 % (11.5-14.5)
[2021-08-09 12:37] LABS: ALBUMIN 3.7 gm/dL (3.5-5.0); BILIRUBIN,TOTAL 0.4 mg/dL (0.2-1.2); C-REACTIVE PROTEIN 0.73 mg/dL (0.00-0.50); CALCIUM 9.5 mg/dL (8.4-10.2); CREATININE, serum 0.72 mg/dL (0.57-1.11); POTASSIUM 3.9 mmol/L (3.5-4.5); TOTAL PROTEIN 7.5 gm/dL (6.2-8.1)
[2021-08-09] MEDS ORDERED: PERCOCET 325 MG1 TA2 PO (13:54)
[2021-08-09] MEDS ORDERED: FLEXERIL 1010 MG/TAB PO (13:54)
[2021-08-09] MEDS ORDERED: MEDROL 4MG DOSPA4 MG PO (13:54)
[2021-08-09 14:06] VITALS: BP 130/89; PULSE 91
== END 2021-08-09 14:15 | disposition home or self-care (01) ==
LOC: COL.ER 11:04
PROVIDERS: Physician Assistant
DX: M54.50 Low back pain, unspecified (principal); E66.01 Morbid (severe) obesity due to excess calories; Z88.5 Allergy status to narcotic agent; Z28.311 Partially vaccinated for COVID-19; W18.30XA Fall on same level, unspecified, initial encounter
CPT/HCPCS: J1885; J2270; J2360; J3360

== ENCOUNTER → 2022-05-26 | Outpatient (CLI) | payer BC ==
[~2022-05-26] MED LIST changes: +MEDROL 4MG DOSPA4 MG PO
== END ==
LOC: COL.RAD 10:21
DX: R06.02 Shortness of breath (principal)

== ENCOUNTER → 2023-08-10 | Outpatient (CLI) | payer BC | LOC: COL.RAD 13:56 | DX: Z01.818 Encounter for other preprocedural examination (principal) ==